=== PATIENT | male | born 1970 | race African-American/Black ===

== ENCOUNTER 2021-06-12 17:34 | Emergency (ER) | payer SELFPAY ==
[2021-06-12 17:46] VITALS: BP 125/83; PULSE 61; TEMP 98.4; BMI 26.1
== END 2021-06-12 19:38 | disposition home or self-care (01) ==
LOC: JER 17:34 → JERFT 17:34
PROC: 2W3CX1Z Immobilization of Right Lower Arm using Splint (ICD-10-PCS; principal; 2021-06-12)
DX: S62.399A Other fracture of unspecified metacarpal bone, initial encounter for closed fracture (principal); W22.09XA Striking against other stationary object, initial encounter
CPT/HCPCS: 73130-TC-RT-FY; 99283-25